=== PATIENT | female | born 1945 | race Two or more races ===

== ENCOUNTER 2021-07-14 17:48 | Emergency (ER) | payer OTHER ==
[~2021-07-14] VITALS: Ht 152.4 cm; Wt 60.3 kg
[2021-07-14] MEDS ORDERED: DONEPEZIL HCL O10 MG (17:58)
[2021-07-14] MEDS ORDERED: SYNTHROID50 MCG (17:58)
== END 2021-07-14 22:40 | disposition home or self-care (01) ==
LOC: ER 17:48
DX: S42.252A Displaced fracture of greater tuberosity of left humerus, initial encounter for closed fracture (principal); W18.39XA Other fall on same level, initial encounter; Y93.89 Activity, other specified; Y92.098 Other place in other non-institutional residence as the place of occurrence of the external cause; Y99.8 Other external cause status; S80.01XA Contusion of right knee, initial encounter